=== PATIENT | female | born 1990 | race Caucasian/White ===

== ENCOUNTER 2018-02-08 12:53 | Emergency (ER) | payer OTHER ==
[2018-02-08] MEDS: ONDANSETRON 4MG/2ML VIAL (J2405) IV (14:12)
[2018-02-08] MEDS: NS 1,000 ML IV (14:12)
[2018-02-08 14:14] LABS: AMORPHOUS SEDIMENT RFX LARGE (NEGATIVE); KETONE, URINE AUTO RFX 2+ mg/dL (NEGATIVE); LEUKOCYTE ESTERASE UR AUTO RFX NEGATIVE (NEGATIVE); MUCUS, URINE RFX SMALL (NEGATIVE); NITRITE, URINE AUTO RFX NEGATIVE (NEGATIVE); RBC, URINE AUTO RFX 0 /HPF (0-3); SPECIFIC GRAVITY UR AUTO RFX 1.015 (1.002-1.035); SQUAM EPITHELIAL CELL UR AURFX 4 /HPF (0-6); WBC, URINE AUTO RFX 1 /HPF (0-3)
[2018-02-08 14:19] LABS: BASO % 0.3 % (0.0-1.0); EOS # 0.2 10^3/uL (0.0-0.50); HEMATOCRIT 42.2 % (36.0-47.0); HEMOGLOBIN 14.4 g/dl (12.0-15.5); IMMATURE GRANULOCYTE % 0.3 % (0-3.0); LYMPH # 2.5 10^3/uL (1.5-6.5); LYMPH % 24.4 % (24.0-44.0); MEAN CORPUSCULAR HEMOGLOBIN 30.3 pg (27.0-33.0); MEAN CORPUSCULAR HGB CONC 34.1 g/dl (32.0-36.5); MEAN CORPUSCULAR VOLUME 88.7 fl (80.0-96.0); MONO # 0.7 10^3/uL (0.0-0.8); MONO % 7.2 % (0.0-5.0); NEUTROPHILS # 6.8 10^3/uL (1.8-7.7); NEUTROPHILS % 65.8 % (36.0-66.0); PLATELET COUNT, AUTOMATED 231 10^3/uL (150-450); RED BLOOD COUNT 4.76 10^6/uL (4.00-5.40); RED CELL DISTRIBUTION WIDTH 11.7 % (11.5-14.5); WHITE BLOOD COUNT 10.3 10^3/uL (4.0-10.0)
[2018-02-08 14:41] LABS: ALBUMIN 4.2 GM/DL (3.2-5.2); ALBUMIN/GLOBULIN RATIO 1.11 (1.00-1.93); ALKALINE PHOSPHATASE 51 U/L (45-117); ALT/SGPT 24 U/L (12-78); ANION GAP 11 MEQ/L (8-16); AST/SGOT 12 U/L (7-37); BILIRUBIN,DIRECT 0.3 MG/DL (0.0-0.2); BLOOD UREA NITROGEN 11 MG/DL (7-18); CALCIUM LEVEL 10.1 MG/DL (8.5-10.1); CARBON DIOXIDE LEVEL 23 MEQ/L (21-32); CHLORIDE LEVEL 106 MEQ/L (98-107); CREATININE FOR GFR 0.85 MG/DL (0.55-1.30); GLOMERULAR FILTRATION RATE > 60.0 (>60); GLUCOSE, FASTING 82 MG/DL (70-100); LIPASE 63 U/L (73-393); POTASSIUM SERUM 3.7 MEQ/L (3.5-5.1); SODIUM LEVEL 140 MEQ/L (136-145)
== END 2018-02-08 16:11 | disposition home or self-care (01) ==
LOC: M ED 12:53
DX: O21.9 Vomiting of pregnancy, unspecified (principal); Z3A.09 9 weeks gestation of pregnancy
CPT/HCPCS: J2405

== ENCOUNTER → 2018-04-23 | Outpatient (CLI) | payer OTHER ==
[~2018-04-23] MED LIST: IBUP80TA PO; ONDA4TAB6; PRENTAB31 PO; TYLE167L PO; ZOFR4TAB14 PO
--- NOTE | 2018-04-23 14:44 | REP ---
Clinical: Anatomical evaluation. Comparison: None . Findings: Examination demonstrates a single live intrauterine in breech presentation. motion is identified by technologist. Placenta is noted posterior and grade grade 1 without evidence for placenta previa or abruption. Amniotic fluid volume is normal. Cervix measures 5.6 cm in length and appears closed. No evidence for nuchal cord. Gestational age by LMP 18 weeks 0 days with DIMITRIS 09/24/2018 . Gestational age by current measurements 18 weeks 0 days with DIMITRIS 09/24/2018 . FHR equals 150 beats per minute. BPD 4.0 cm 18 weeks 1 day HC 14.8 cm 18 weeks 0 days AC 12.3 cm 18 weeks 0 days FL 2.7 cm 18 weeks 0 days HL 2.6 cm 18 weeks 0 days HC/AC ratio 1.20 Estimated weight 290 grams ( 47th percentile). Anatomical assessment demonstrates normal structures including cranium, choroid plexus, cavum, cerebellum/posterior fossa, facial features, lungs, diaphragm, stomach, cord insertion/three-vessel cord, kidneys/bladder, spine, and extremities. Impression: Single live intrauterine in breech presentation demonstrating appropriate interval growth. Limited evaluation of the heart/ventricular outflow tracts noted. Remainder of the anatomical assessment is complete and normal. Electronically Signed by Jem Rodas MD 04/23/2018 02:36 P
== END ==
LOC: M SMT 13:38
PROVIDERS: ATTEND Advanced Practice Midwife
DX: Z36.89 Encounter for other specified antenatal screening (principal); Z3A.18 18 weeks gestation of pregnancy; O32.1XX0 Maternal care for breech presentation, not applicable or unspecified

== ENCOUNTER → 2018-07-14 | Outpatient (CLI) | payer OTHER ==
--- NOTE | 2018-07-14 17:16 | REP ---
OB ULTRASOUND: Real-time sonographic evaluation of the gravid uterus is performed. There is a single living intrauterine gestation. The estimated gestational age is 29 weeks 5 days. EDC 09/24/2018. Today's measurements indicate appropriate growth. BPD 77 mm = 30 weeks 5 days at the 64th percentile HC 278 mm = 30 weeks 3 days at the 61st percentile. AC 258 mm = 30 weeks 0 day, at the 56th percentile. Femur length 54 mm = 28 weeks 4 days, at the 26th percentile. HC/AC ratio 1.08 within normal range. Estimated weight 1426 grams at the 40th percentile. Cervix is closed and measures 4.9 cm in length. heart rate 139 beats per minute. Amniotic fluid within normal limits. MILAD 14.0 within normal range of 9.1 to 23.3. SD ratio 2.77 and RI 0.64 within normal range. SEEN/GROSSLY UNREMARKABLE Lateral ventricles Yes Posterior fossa No Upper lip Yes Four-chamber heart Yes LVOT Yes RVOT Yes Stomach Yes Cord insertion Yes Three vessel cord Yes Kidneys Yes Bladder Yes Spine No position: Vertex. Placenta: Posterior and fundal and grade 1 with no previa or abruption. Electronically Signed by Julian Calderon MD 07/15/2018 11:05 A
== END ==
LOC: M RAD 15:09
PROVIDERS: ATTEND Advanced Practice Midwife
DX: Z34.82 Encounter for supervision of other normal pregnancy, second trimester (principal); Z3A.29 29 weeks gestation of pregnancy

== ENCOUNTER → 2018-07-16 | Outpatient (CLI) | payer OTHER ==
[2018-07-16 14:00] LABS: HEMATOCRIT 32.9 % (36.0-47.0); HEMOGLOBIN 10.6 g/dl (12.0-15.5); MEAN CORPUSCULAR HEMOGLOBIN 29.4 pg (27.0-33.0); MEAN CORPUSCULAR HGB CONC 32.2 g/dl (32.0-36.5); MEAN CORPUSCULAR VOLUME 91.4 fl (80.0-96.0); PLATELET COUNT, AUTOMATED 189 10^3/uL (150-450); WHITE BLOOD COUNT 8.2 10^3/uL (4.0-10.0)
== END ==
LOC: M SMT 09:33
PROVIDERS: ATTEND Advanced Practice Midwife
DX: Z34.82 Encounter for supervision of other normal pregnancy, second trimester (principal); Z3A.00 Weeks of gestation of pregnancy not specified

== ENCOUNTER → 2018-07-20 | Outpatient (CLI) | payer OTHER | LOC: M LAB 07:01 | PROVIDERS: ATTEND Advanced Practice Midwife | DX: Z34.83 Encounter for supervision of other normal pregnancy, third trimester (principal); Z3A.00 Weeks of gestation of pregnancy not specified ==

== ENCOUNTER → 2018-08-24 | Outpatient (CLI) | payer OTHER ==
--- NOTE | 2018-08-25 03:09 | REP ---
Clinical: Growth evaluation. Comparison: 07/15/2018 . Findings: Examination demonstrates a single live intrauterine in cephalic presentation. motion is identified by technologist. Placenta is noted posterior and grade two without evidence for placenta previa or abruption. Amniotic fluid volume is normal. Cervix measures 3.2 cm in length and appears closed. No evidence for nuchal cord. Gestational age by LMP 35 weeks 4 days with DIMITRIS 09/24/2018 . Gestational age by current measurements 35 weeks 5-day with DIMITRIS 09/23/2018 . FHR equals 125 beats per minute. BPD 8.9 cm 36 weeks 0 days HC 32.5 cm 36 weeks 6 days AC 31.8 cm 35 weeks 5 days FL 6.9 cm 35 weeks 2 days HL 6.0 cm 35 weeks 0 days HC/AC ratio 1.02 Estimated weight 2750 grams ( 52nd percentile). Amniotic fluid index: 10.9 cm Umbilical cord SD ratio: 2.73 Impression: Single live intrauterine in cephalic presentation demonstrating appropriate interval growth. Electronically Signed by Jem Rodas MD 08/25/2018 03:00 A
== END ==
LOC: M RAD 13:37
PROVIDERS: ATTEND Advanced Practice Midwife
DX: O26.843 Uterine size-date discrepancy, third trimester (principal); Z3A.35 35 weeks gestation of pregnancy

== ENCOUNTER → 2018-08-27 | Outpatient (REF) | payer OTHER | LOC: M LAB REF 13:09 | PROVIDERS: ATTEND Advanced Practice Midwife | DX: Z34.83 Encounter for supervision of other normal pregnancy, third trimester (principal); Z36.85 Encounter for antenatal screening for Streptococcus B ==

== ENCOUNTER 2018-09-21 22:03 | Inpatient (IN) | payer OTHER ==
[~2018-09-21] VITALS: Ht 162.6 cm; Wt 81.8 kg
[2018-09-21] MEDS ORDERED: LR 1,000 ML IV SCH (22:13)
[2018-09-21] MEDS ORDERED: LACTATED RINGER'S 1000 ML IV STA (22:13)
[2018-09-21] MEDS ORDERED: PROMETHAZINE INJ 25 MG/ML VIAL (J2550) IV ONE (22:15)
[2018-09-21] MEDS ORDERED: BUTORPHANOL 2 MG/ML INJ (J0595) IV ONE (22:15)
[2018-09-21 22:41] LABS: HEMATOCRIT 32.8 % (36.0-47.0); HEMOGLOBIN 10.7 g/dl (12.0-15.5); MEAN CORPUSCULAR HEMOGLOBIN 27.3 pg (27.0-33.0); MEAN CORPUSCULAR HGB CONC 32.6 g/dl (32.0-36.5); MEAN CORPUSCULAR VOLUME 83.7 fl (80.0-96.0); PLATELET COUNT, AUTOMATED 192 10^3/uL (150-450); RED BLOOD COUNT 3.92 10^6/uL (4.00-5.40); WHITE BLOOD COUNT 9.7 10^3/uL (4.0-10.0)
[2018-09-21 22:55] VITALS: BP 119/60
[2018-09-21] MEDS ORDERED: FENTANYL 2MCG/ML ROPIVACAINE 0.2% IN 0.9% NACL 100ML IVBAG As Ordered ONE (23:08)
[2018-09-21 23:27] VITALS: BP 134/82
[2018-09-21] MEDS ORDERED: OXYTOCIN 30 UNITS IN 0.9% NaCl 500ML IV BAG (J2590) As Ordered ONE (23:29)
[2018-09-21 23:58] VITALS: BP 120/78
[2018-09-22 00:11] VITALS: BP 130/62
[2018-09-22 00:26] VITALS: BP 129/62
[2018-09-22] MEDS ORDERED: OXYTOCIN DRIP 30 UNITS in IV 1 EA IV SCH (00:42)
[2018-09-22] MEDS ORDERED: RHOGAM 300 MCG (1500 IU) INJ (J2790) IM SCH (00:45)
[2018-09-22] MEDS ORDERED: MEASLES,MUMPS,RUBELLA VACCINE INJ (MMR-II) (90707) SC SCH (00:45)
[2018-09-22] MEDS ORDERED: LIDOCAINE 1% MDV 20ML VIAL INFIL ONE (00:45)
[2018-09-22] MEDS ORDERED: DOCUSATE SODIUM 100 MG CAP PO PRN (00:45)
[2018-09-22] MEDS ORDERED: ANUSOL HC CREAM 30GM TOP PRN (00:45)
[2018-09-22] MEDS ORDERED: IBUPROFEN 600 MG TAB PO PRN (00:45)
[2018-09-22] MEDS ORDERED: DIBUCAINE 1% OINTMENT 30GM TOP PRN (00:45)
[2018-09-22] MEDS ORDERED: METHYLERGONOVINE MALEATE 0.2 MG TAB PO PRN (00:45)
[2018-09-22] MEDS: IBUPROFEN 800 MG TAB PO PRN ×2 (00:59→11:25)
[2018-09-22 01:30] VITALS: BP 133/61
[2018-09-22 02:00] VITALS: BP 115/60
[2018-09-22] MEDS: ACETAMINOPHEN 500 MG TAB PO PRN (03:22)
[2018-09-22] MEDS ORDERED: DICL10TA PO (06:51)
--- NOTE | 2018-09-22 07:55 | HPE ---
DATE OF ADMISSION: 09/21/2018 HISTORY OF PRESENT ILLNESS: The patient is a 28-year-old female who is a 2, para 1-0-0-1, at 39 weeks 4 days gestation with an DIMITRIS of 09/24/2018 based off of her last menstrual cycle and her first trimester ultrasound. The patient initiated care in her first trimester with [facility]. The patient's has been uncomplicated. She presents to labor and delivery with complaints of contractions that are about every 3 minutes. She denies leaking of fluid or vaginal bleeding. She reports active movement. ALLERGIES: - TRAMADOL - OMEPRAZOLE CURRENT MEDICATIONS: - ferrous gluconate - Zantac - vitamins PAST MEDICAL HISTORY: Chicken pox and mononucleosis as a child. CURRENT MEDICAL PROBLEMS: None. SURGICAL HISTORY: Tonsillectomy with adenoidectomy. Ganglion cyst of the left hand removed. FAMILY HISTORY: Cancer - breast, liver and kidney. Diabetes. Hypertension. Cystic fibrosis. SOCIAL HISTORY: The patient is . She has no history of abuse. She reports she has never been a smoker. She has used no alcohol during and prior to she rarely had any alcohol. She has no history of drug abuse or use during . She has no history of any sexually transmitted infections. PAST PREGNANCIES: In March 2014, she delivered a female at 38 weeks gestation weighing 6 pounds by vaginal delivery with no complications. LABORATORIES: Blood type is AB positive. Antibody screen negative. Hemoglobin and hematocrit in first trimester were 12.3 and 37.4 with platelets of 207. Rubella is immune. VDRL is nonreactive. Urine had no growth. Hepatitis B surface antigen was negative. HIV negative. Gonorrhea and Chlamydia both negative. Hepatitis C negative. Cystic fibrosis which was done 01/31/2015 indicates she is not a carrier for cystic fibrosis. She declined genetic testing or aneuploidy testing. Her 1-hour glucose tolerance test was 130. Then initiated a 3-hour, which her fasting was 79, 1-hour was 116, 2-hour was 96 and 3-hour was 94, in total all were negative. Her hemoglobin and hematocrit at the time of her glucose tolerance test were 10.6 and 32.9 with platelets of 189. Her Group B streptococcus (GBS) is negative. heart rate is 150 beats per minute, moderate variability, positive accelerations, no decelerations. Contractions are every 1-3 minutes. Vital Signs: 118/60 blood pressure. Heart rate 101. Respiratory rate 18. Temperature 97.4. Sterile Vaginal Exam (SVE): 5 cm dilated, 100% effaced, -1 station, with scant amount of bloody show. PHYSICAL ASSESSMENT: GENERAL: Alert and oriented times three. RESPIRATORY: Regular rate with no use of accessory muscles. Respiratory rate does increase while patient is breathing through contractions during her pain. ABDOMEN: Gravid and palpates hard with contraction. Cephalic presentation noted of fetus through vaginal examination and Navin's. LOWER EXTREMITIES: Generalized edema with no pitting. No clonus noted. ASSESSMENT: 1. Intrauterine at 39 weeks 4 days gestation, active labor, category 1 heart rate tracing, GBS negative. PLAN: Admit patient to labor and delivery. IV and blood per protocol. Out of bed as desired. Clear liquid diet. The patient unsure if she desires IV pain medication or epidural. Anesthesia consult ordered if patient desires epidural. Lactated Ringers 800 mL bolus to be given prior to epidural if patient desires one. Anticipate cervical change and spontaneous vaginal delivery.
[2018-09-22] MEDS: ACETAMINOPHEN TAB 650MG DOSE (2X325MG) PO PRN ×2 (08:23→15:06)
[2018-09-22] MEDS: PRENATAL VITAMINS CHEWABLE TABLET PO SCH (08:23)
--- NOTE | 2018-09-22 10:51 | DN ---
Delivery DATE: 09/21/2018 at 2336 STATUS: Delivered, spontaneous vaginal delivery. PROVIDER: Aliyah Valencia CNM, PEGGY ANESTHESIA: None. ESTIMATED BLOOD LOSS: 450. FINDINGS: Male, 8 pounds 2 ounces, 3690 grams, 9/9, cord around leg times one, right nuchal hand, precipitous labor. The patient is a 28-year-old female who is now a 2, para 2-0-0-2, at 39 weeks and 4 days gestation who presented to labor and delivery in active labor. She received no pain medications for labor. She progressed to fully dilated at 2331 and at that time artificial rupture of membranes (AROM) was done to a small amount of clear fluid. She pushed to a living male in the right occiput anterior (KIRAN) position with restitution to right occiput transverse (ROT) at 2336. The anterior shoulder delivered with ease and the corpus immediately followed. The baby was placed on the maternal abdomen, active and crying. The cord was clamped times two after 2 minutes and cut by the father of the baby. A three vessel cord was noted. The placenta delivered spontaneously and intact at 2341. Uterine hemostasis was achieved via rapid infusion of IV Pitocin and fundal massage. The perineum, cervix and vagina was inspected and found to have a second degree perineal laceration that was repaired with a #3-[address]-1 using Lidocaine 1%. Mom plans on breast feeding. She is naming him Bud De Jesus. All counts of instruments and sponges are correct. JOSEPH
[2018-09-22 18:00] VITALS: BP 115/54
[2018-09-23] MEDS: ACETAMINOPHEN 500 MG TAB PO PRN (02:11)
[2018-09-23 06:52] VITALS: BP 109/59
[2018-09-23] MEDS ORDERED: IBUP80TA PO (06:59)
[2018-09-23] MEDS ORDERED: ACET-683 PO (06:59)
[2018-09-23] MEDS: PRENATAL VITAMINS CHEWABLE TABLET PO SCH (08:00)
[2018-09-23] MEDS: IBUPROFEN 800 MG TAB PO PRN (08:01)
== END 2018-09-23 12:05 | disposition home or self-care (01) | DRG 807 ==
LOC: M LDO 22:03 → M LDI 22:20 → M OBS 09-22 01:35
PROVIDERS: ADMIT Advanced Practice Midwife; ATTEND Advanced Practice Midwife
PROC: 10E0XZZ Delivery of Products of Conception, External Approach (ICD-10-PCS; principal; 2018-09-21)
PROC: 0KQM0ZZ Repair Perineum Muscle, Open Approach (ICD-10-PCS; 2018-09-21)
PROC: 10907ZC Drainage of Amniotic Fluid, Therapeutic from Products of Conception, Via Natural or Artificial Opening (ICD-10-PCS; 2018-09-21)
DX: O70.1 Second degree perineal laceration during delivery (principal); Z37.0 Single live birth; Z3A.39 39 weeks gestation of pregnancy; O69.82X0 Labor and delivery complicated by other cord entanglement, without compression, not applicable or unspecified

== ENCOUNTER → 2019-01-12 | Outpatient (REF) | payer OTHER ==
[~2019-01-12] MED LIST changes: +ACET-683 PO; +DICL10TA PO
[2019-01-15 15:57] LABS: HPV LOW VOL RFLX Negative (Negative)
== END ==
LOC: M LAB REF 13:34
PROVIDERS: ATTEND Advanced Practice Midwife
DX: Z12.4 Encounter for screening for malignant neoplasm of cervix (principal); R87.610 Atypical squamous cells of undetermined significance on cytologic smear of cervix (ASC-US)
CPT/HCPCS: 87624; G0123

== ENCOUNTER → 2020-07-13 | Outpatient (REF) | payer OTHER ==
[2020-07-13 13:59] LABS: HEMATOCRIT 42.7 % (36.0-47.0); HEMOGLOBIN 13.7 g/dl (12.0-15.5); MEAN CORPUSCULAR HGB CONC 32.1 g/dl (32.0-36.5); MEAN CORPUSCULAR VOLUME 90.5 fl (80.0-96.0); PLATELET COUNT, AUTOMATED 196 10^3/uL (150-450); RED BLOOD COUNT 4.72 10^6/uL (4.00-5.40); WHITE BLOOD COUNT 6.8 10^3/uL (4.0-10.0)
[2020-07-13 14:13] LABS: ALBUMIN 4.2 GM/DL (3.2-5.2); ALT/SGPT 24 U/L (12-78); BILIRUBIN,TOTAL 0.8 MG/DL (0.2-1.0); BLOOD UREA NITROGEN 12 MG/DL (7-18); CALCIUM LEVEL 9.4 MG/DL (8.5-10.1); CARBON DIOXIDE LEVEL 28 MEQ/L (21-32); CHLORIDE LEVEL 108 MEQ/L (98-107); CHOLESTEROL LEVEL 181 MG/DL (<200); CHOLESTEROL RISK RATIO 2.701 (<5); FREE T4 0.93 NG/DL (0.76-1.46); GLOMERULAR FILTRATION RATE > 60.0 (>60); GLUCOSE, FASTING 78 MG/DL (70-100); HDL CHOLESTEROL 67 MG/DL (>40); LDL CHOLESTEROL 101 MG/DL (<100); NON-HDL-C 114 MG/DL; SODIUM LEVEL 141 MEQ/L (136-145); TOTAL PROTEIN 7.6 GM/DL (6.4-8.2); TRIGLYCERIDES LEVEL 65 MG/DL (<150)
[2020-07-13 14:18] LABS: HEMOGLOBIN A1c 4.8 %
== END ==
LOC: M PLALAB 10:20
PROVIDERS: ATTEND Advanced Practice Midwife
DX: R87.615 Unsatisfactory cytologic smear of cervix (principal); Z12.4 Encounter for screening for malignant neoplasm of cervix; N88.8 Other specified noninflammatory disorders of cervix uteri
CPT/HCPCS: 36415; 80053; 80061; 82652; 83036; 84439; 84443; 85027; 87624; G0123

== ENCOUNTER → 2021-05-30 | Outpatient (REF) | payer OTHER ==
[2021-05-30 17:04] LABS: HEMATOCRIT 41.7 % (36.0-47.0); HEMOGLOBIN 13.9 g/dl (12.0-15.5); MEAN CORPUSCULAR HEMOGLOBIN 29.8 pg (27.0-33.0); MEAN CORPUSCULAR HGB CONC 33.3 g/dl (32.0-36.5); MEAN CORPUSCULAR VOLUME 89.5 fl (80.0-96.0); PLATELET COUNT, AUTOMATED 205 10^3/uL (150-450); RED BLOOD COUNT 4.66 10^6/uL (4.00-5.40); WHITE BLOOD COUNT 7.6 10^3/uL (4.0-10.0)
[2021-05-30 17:11] LABS: ALBUMIN 4.2 GM/DL (3.2-5.2); ALT/SGPT 28 U/L (12-78); BILIRUBIN,TOTAL 0.5 MG/DL (0.2-1.0); BLOOD UREA NITROGEN 11 MG/DL (7-18); CALCIUM LEVEL 9.5 MG/DL (8.5-10.1); CARBON DIOXIDE LEVEL 30 MEQ/L (21-32); CHLORIDE LEVEL 110 MEQ/L (98-107); CREATININE FOR GFR 0.85 MG/DL (0.55-1.30); GLOMERULAR FILTRATION RATE > 60.0 (>60); GLUCOSE, FASTING 76 MG/DL (70-100); POTASSIUM SERUM 4.1 MEQ/L (3.5-5.1); SODIUM LEVEL 143 MEQ/L (136-145); TOTAL PROTEIN 7.7 GM/DL (6.4-8.2)
== END ==
LOC: M SFHCADAM 11:47
PROVIDERS: ATTEND Physician Assistant
DX: R10.2 Pelvic and perineal pain (principal)

== ENCOUNTER → 2021-05-30 | Outpatient (CLI) | payer OTHER | LOC: M WHC 13:29 | PROVIDERS: ATTEND Physician Assistant | DX: R10.2 Pelvic and perineal pain (principal); Z97.5 Presence of (intrauterine) contraceptive device ==

== ENCOUNTER → 2021-06-14 | Outpatient (REF) | payer OTHER ==
[2021-06-14 16:11] LABS: URINE PREG TEST NEGATIVE (NEGATIVE)
[2021-06-14 16:19] LABS: APPEARANCE, URINE HAZY (CLEAR); BACTERIA, URINE AUTO NEGATIVE (NEGATIVE); BILIRUBIN, URINE AUTO NEGATIVE (NEGATIVE); BLOOD, URINE BLOOD NEGATIVE (NEGATIVE); COLOR, URINE YELLOW (YELLOW); GLUCOSE, URINE (UA) AUTO NEGATIVE (NEGATIVE); KETONE, URINE AUTO NEGATIVE (NEGATIVE); LEUKOCYTE ESTERASE, URINE AUTO NEGATIVE (NEGATIVE); MUCUS, URINE SMALL (NEGATIVE); NITRITE, URINE AUTO NEGATIVE (NEGATIVE); PROTEIN, URINE AUTO NEGATIVE (NEGATIVE); RBC, URINE AUTO 3 /HPF (0-3); SPECIFIC GRAVITY URINE AUTO 1.024 (1.002-1.035); SQUAMOUS EPITHELIAL CELL UR AU 2 /HPF (0-6); UROBILINOGEN, URINE AUTO 0.2 mg/dL (0.0-2.0); WBC, URINE AUTO 1 /HPF (0-3)
== END ==
LOC: M SFHCADAM 15:58
PROVIDERS: ATTEND Physician Assistant
DX: R10.2 Pelvic and perineal pain (principal)

== ENCOUNTER → 2021-06-18 | Outpatient (CLI) | payer OTHER ==
[~2021-06-18] MED LIST changes: +GASTROGRAFIN SOLUTION 30ML (Q9963) As Ordered ONE; +ISOVUE-370 76% 100ML VIAL As Ordered ONE
== END ==
LOC: M RAD 15:47
PROVIDERS: ATTEND Physician Assistant
DX: R10.31 Right lower quadrant pain (principal)
CPT/HCPCS: 74178; Q9963; Q9967

== ENCOUNTER → 2022-03-21 | Outpatient (REF) | payer OTHER ==
[~2022-03-21] MED LIST changes: -GASTROGRAFIN SOLUTION 30ML (Q9963) As Ordered ONE; -ISOVUE-370 76% 100ML VIAL As Ordered ONE
== END ==
LOC: M SFHCPLAZ 16:58
PROVIDERS: ATTEND Physician Assistant
DX: U07.1 COVID-19 (principal)

== ENCOUNTER → 2022-03-27 | Outpatient (REF) | payer OTHER | LOC: M SFHCPLAZ 16:52 | PROVIDERS: ATTEND Physician Assistant | DX: U07.1 COVID-19 (principal) ==

== ENCOUNTER → 2023-02-04 | Outpatient (REF) | payer OTHER | LOC: M SFHCADAM 13:25 | PROVIDERS: ATTEND Physician Assistant | DX: R19.7 Diarrhea, unspecified (principal) ==

== ENCOUNTER → 2023-05-08 | Outpatient (REF) | payer OTHER | LOC: M SFHCWAGY 09:05 | PROVIDERS: ATTEND Advanced Practice Midwife | DX: Z12.4 Encounter for screening for malignant neoplasm of cervix (principal); Z11.51 Encounter for screening for human papillomavirus (HPV) | CPT/HCPCS: 87624; G0123 ==

== ENCOUNTER → 2023-09-10 | Outpatient (CLI) | payer BC ==
[~2023-09-10] MED LIST changes: +ONDA-282; -ONDA4TAB6
[2023-09-10 15:05] LABS: BASO % 0.7 % (0.0-1.0); EOS # 0.3 10^3/uL (0.0-0.5); EOS % 5.4 % (0.0-3.0); HEMATOCRIT 40.2 % (36.0-47.0); HEMOGLOBIN 13.3 g/dl (12.0-15.5); LYMPH # 1.9 10^3/uL (1.5-5.0); LYMPH % 33.4 % (24.0-44.0); MEAN CORPUSCULAR HEMOGLOBIN 30.3 pg (27.0-33.0); MEAN CORPUSCULAR HGB CONC 33.1 g/dl (32.0-36.5); MEAN CORPUSCULAR VOLUME 91.6 fl (80.0-96.0); MONO # 0.3 10^3/uL (0.0-0.8); MONO % 5.9 % (2.0-8.0); NEUTROPHILS # 3.1 10^3/uL (1.5-8.5); NEUTROPHILS % 54.4 % (36.0-66.0); PLATELET COUNT, AUTOMATED 174 10^3/uL (150-450); RED BLOOD COUNT 4.39 10^6/uL (4.00-5.40); WHITE BLOOD COUNT 5.7 10^3/uL (4.0-10.0)
[2023-09-10 15:06] LABS: C REACTIVE PROTEIN QUANTITATIV < 0.40 MG/DL (<1.0)
[2023-09-10 15:07] LABS: BLOOD UREA NITROGEN 18 MG/DL (9-23); CALCIUM LEVEL 9.4 MG/DL (8.5-10.1); CARBON DIOXIDE LEVEL 28 MMOL/L (20-31); CHLORIDE LEVEL 109 MMOL/L (98-107); CREATININE FOR GFR 0.72 MG/DL (0.55-1.30); GLOMERULAR FILTRATION RATE > 60.0 (>60); GLUCOSE, FASTING 81 MG/DL (60-100); POTASSIUM SERUM 4.1 MMOL/L (3.5-5.1); RHEUMATOID FACTOR QUANT < 3.5 IU/ML (<14); SODIUM LEVEL 143 MMOL/L (136-145)
[2023-09-10 15:19] LABS: ERYTHROCYTE SEDIMENTATION RATE 17 mm/hr (0-20)
[2023-09-11 15:26] LABS: ANA PATTERN Nuclear, Speckled (NEGATIVE); ANA SCREEN, IFA POSITIVE (NEGATIVE); ANA TITER 1:40 titer (<1:40)
[2023-09-12 00:08] LABS: CYCLIC CITRULLINATED PEPTIDE < 16 UNITS (<20)
== END ==
LOC: M PLAIMG 09:19
PROVIDERS: ATTEND Physician Assistant
DX: M25.551 Pain in right hip (principal); M25.561 Pain in right knee; M25.562 Pain in left knee

== ENCOUNTER → 2023-10-15 | Outpatient (CLI) | payer BC | LOC: M ADAMS 10:57 | PROVIDERS: ATTEND Physician Assistant | DX: M25.551 Pain in right hip (principal) ==

== ENCOUNTER → 2023-12-11 | Outpatient (REF) | payer OTHER ==
[2023-12-22 11:15] LABS: DEAMIDATED GLIADIN ABS, IgA 2.9 U/mL (<15.0); DEAMIDATED GLIADIN ABS, IgG < 1.0 U/mL (<15.0); t-TRANSGLUTAMINASE(tTG) IgA < 1.0 U/mL (<15.0)
[2023-12-22 11:16] LABS: IMMUNOGLOBULIN A CELIAC 147 mg/dL (47-310); t-TRANSGLUTAMINASE(tTG) IgG < 1.0 U/mL (<15.0)
== END ==
LOC: M LABDRWAD 11:08
PROVIDERS: ATTEND Nurse Practitioner Family
DX: R19.4 Change in bowel habit (principal); R12 Heartburn

== ENCOUNTER → 2024-01-14 | Outpatient (REF) | payer BC ==
[2024-01-14 17:45] LABS: C REACTIVE PROTEIN QUANTITATIV < 0.40 MG/DL (<1.0)
[2024-01-14 17:52] LABS: VITAMIN B12 LEVEL 527 PG/ML (211-911)
[2024-01-14 18:08] LABS: FOLATE 13.5 NG/ML (>5.4)
== END ==
LOC: M SFHCADAM 14:38
PROVIDERS: ATTEND Physician Assistant
DX: R76.8 Other specified abnormal immunological findings in serum (principal); R51.9 Headache, unspecified

== ENCOUNTER → 2024-01-14 | Outpatient (CLI) | payer BC | LOC: M ADAMS 14:41 | PROVIDERS: ATTEND Physician Assistant | DX: R51.9 Headache, unspecified (principal) ==

== ENCOUNTER → 2024-05-12 | Outpatient (REF) | payer BC ==
[2024-05-12 18:33] LABS: ALBUMIN 4.2 G/DL (3.2-5.2); ALKALINE PHOSPHATASE 56 U/L (35-104); ALT/SGPT 27 U/L (7.0-40); AST/SGOT 14 U/L (<34); BILIRUBIN,TOTAL 0.8 MG/DL (0.3-1.2); BLOOD UREA NITROGEN 11 MG/DL (9-23); CALCIUM LEVEL 9.8 MG/DL (8.5-10.1); CARBON DIOXIDE LEVEL 26 MMOL/L (20-31); CHLORIDE LEVEL 108 MMOL/L (98-107); CHOLESTEROL LEVEL 224 MG/DL (<200); CHOLESTEROL RISK RATIO 3.09 (<5); CREATININE FOR GFR 0.61 MG/DL (0.55-1.30); GLOMERULAR FILTRATION RATE > 60.0 (>60); GLUCOSE, FASTING 64 MG/DL (60-100); HDL CHOLESTEROL 72.4 MG/DL (>40); NON-HDL-C 151.6 MG/DL; SODIUM LEVEL 143 MMOL/L (136-145); TOTAL PROTEIN 7.7 G/DL (5.7-8.2); TRIGLYCERIDES LEVEL 78 MG/DL (<150)
[2024-05-12 18:35] LABS: FREE T4 1.24 NG/DL (0.89-1.76); HEMOGLOBIN A1c 4.7 % (4.0-6.0); THYROID STIMULATING HORMONE 1.015 uIU/ML (0.55-4.78)
== END ==
LOC: M SFHCADAM 11:53
PROVIDERS: ATTEND Physician Assistant
DX: F41.1 Generalized anxiety disorder (principal); K21.9 Gastro-esophageal reflux disease without esophagitis; Z68.30 Body mass index [BMI] 30.0-30.9, adult; E66.811 Obesity, class 1; I95.9 Hypotension, unspecified; Z13.220 Encounter for screening for lipoid disorders; Z13.1 Encounter for screening for diabetes mellitus

== ENCOUNTER → 2024-08-04 | Outpatient (CLI) | payer BC | LOC: M ADAMS 10:19 | PROVIDERS: ATTEND Physician Assistant | DX: M79.671 Pain in right foot (principal) ==

== ENCOUNTER → 2024-11-04 | Outpatient (REF) | payer BC ==
[2024-11-09 13:52] LABS: HPV APTIMA Not Detected (Not Detected)
== END ==
LOC: M PLALAB 11:29
PROVIDERS: ATTEND Advanced Practice Midwife
DX: Z12.4 Encounter for screening for malignant neoplasm of cervix (principal); Z11.51 Encounter for screening for human papillomavirus (HPV)

== ENCOUNTER → 2025-01-09 | Outpatient (REF) | payer BC | LOC: M LAB REF 12:41 | DX: R12 Heartburn (principal); R19.4 Change in bowel habit ==